=== PATIENT | male | born 1970 | race Caucasian/White ===

== ENCOUNTER 2019-12-29 07:36 | Emergency (ER) | payer BC ==
[~2019-12-29] VITALS: Ht 175.3 cm; Wt 84.9 kg
[2019-12-29] MEDS ORDERED: EMTR1TAB13 PO (08:02)
[2019-12-29] MEDS ORDERED: MULT-750 PO (08:03)
--- NOTE | 2019-12-29 08:07 | NUR ---
MD IS AT THE BEDSIDE TO ASSESS
--- NOTE | 2019-12-29 08:21 | NUR ---
COVID SWAB WALKED TO LAB.
[2019-12-29 08:59] LABS: MEAN CORPUSCULAR HEMOGLOBIN 33.6 pg (27.5-34.5); MEAN CORPUSCULAR HGB CONC 33.6 g/dL (33.2-36.2); PLATELET COUNT 136 x10^3/uL (130-400); RED BLOOD COUNT 5.39 x10^6/uL (4.38-5.82); RED CELL DISTRIBUTION WIDTH 13.6 % (9.4-14.8)
[2019-12-29] MEDS ORDERED: SODIUM CHLORIDE 0.9% 1,000ML IVBOLUS ONE ×2 (09:00→11:00)
[2019-12-29 09:10] LABS: ALBUMIN 3.8 g/dL (3.4-5.0); ANION GAP 8 mmol/L (5-15); CALCIUM 8.8 mg/dL (8.5-10.1); CHLORIDE 105 mmol/L (98-107)
[2019-12-29 09:13] LABS: ALANINE AMINOTRANSFERASE 39 U/L (12-78); ALKALINE PHOSPHATASE 42 U/L (45-117); BILIRUBIN,TOTAL 1.2 mg/dL (0.2-1.0); CREATININE 1.23 mg/dL (0.7-1.3); TOTAL PROTEIN 7.4 g/dL (6.4-8.2)
--- NOTE | 2019-12-29 10:31 | NUR ---
URINE COLLECTED AND SENT TO LAB.
[2019-12-29 10:52] LABS: MICROSCOPIC INDICATED
--- NOTE | 2019-12-29 11:11 | NUR ---
REPORT FROM VIKRAM RN, PT RESTING IN [facility] WITH 2ND L IVF INFUSING
[2019-12-29 11:20] LABS: MD YES
[2019-12-29 11:23] LABS: BAND#(MANUAL) 0.46 x10^3/uL; BANDS%(MANUAL) 7 % (0-7); LYMPH#(MANUAL) 0.52 x10^3/uL (1-3.4); LYMPHS% (MANUAL) 8 % (22-44); MONOS#(MANUAL) 0.59 x10^3/uL (0.3-2.7); MONOS% (MANUAL) 9 % (2-9); SEG#(MANUAL) 4.94 x10^3/uL (1.8-6.8); SEGS% (MANUAL) 76 % (42-75)
[2019-12-29 11:24] LABS: <PLATELET ESTIMATE> ADEQUATE; <PLT MORPHOLOGY> NORMAL PLT MORPH; <RBC MORPHOLOGY> NORMAL
--- NOTE | 2019-12-29 12:30 | NUR ---
PT STATES HE STILL FEELS WEAK. PT UP TO COMMODE WITH STEADY GAIT WITH 1X EPISODE OF DIARRHEA. PT ON MONITOR, CALL LIGHT WITHIN REACH. AWARE
[2019-12-29] MEDS ORDERED: SODIUM CHLORIDE 0.9% 1,000 ML IV SCH (13:00)
--- NOTE | 2019-12-29 13:15 | NUR ---
REPORT RECEIVED FROM CHRISSY MONTES. ASSUMING PRIMARY CARE OF PT.
--- NOTE | 2019-12-29 14:25 | NUR ---
PT DC HOME IN A STABLE CONDITION. PIV WAS REMOVED WITH TIP INTACT. DC INSTRUCTIONS WERE DISCUSSED WITH PT. PT VERBALIZED UNDERSTANDING. NO FURTHER QUESTIONS OR CONCERNS EXPRESSED AT THAT TIME.
[2019-12-29 14:26] VITALS: BP 129/85
== END 2019-12-29 14:28 | disposition home or self-care (01) ==
LOC: ED 08:06
DX: E86.0 Dehydration (principal); Z20.828 Contact with and (suspected) exposure to other viral communicable diseases; R50.9 Fever, unspecified; R19.7 Diarrhea, unspecified; I44.4 Left anterior fascicular block; R00.0 Tachycardia, unspecified
CPT/HCPCS: 36415; 71045; 80053; 81001; 83605; 84145; 85025; 85730; 87040; 87086; 93005; 96360; 96361; 99285; J7030